=== PATIENT | female | born 1955 | race Caucasian/White ===

== ENCOUNTER → 2016-10-10 | Outpatient (REF) | payer OTHER | LOC: M LAB REF 16:23 | PROVIDERS: ATTEND Internal Medicine Medical Oncology | DX: D48.1 Neoplasm of uncertain behavior of connective and other soft tissue (principal) ==

== ENCOUNTER → 2016-10-12 | Outpatient (CLI) | payer OTHER ==
--- NOTE | 2016-10-12 15:08 | ECGEPIP ---
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
== END ==
LOC: M LAB 08:15
PROVIDERS: ATTEND Nurse Practitioner Family
DX: D21.4 Benign neoplasm of connective and other soft tissue of abdomen (principal)

== ENCOUNTER → 2016-10-14 | Outpatient (CLI) | payer OTHER ==
--- NOTE | 2016-10-14 08:53 | REP ---
Clinical: Given history of gastrointestinal stromal tumor (GIST). Comparison: None available. Findings: The examination is limited by the lack of both oral and intravenous contrast material. There are multiple complex, mixed density mass lesions within the pelvis - the largest of which measure approximately 8.7 x 6.4 x 6.4 cm, and 9.6 x 7.3 x 6.7 cm with smaller similar complex lesions and suspicion for pelvic sidewall adenopathy measuring up to approximately 3.0 x 1.9 cm along the left pelvic sidewall. No pelvic fluid or ascites appreciated. No significant retroperitoneal adenopathy or mesenteric adenopathy is identified. The small and large bowel appears grossly normal with site of small bowel anastomosis in the midline lower abdomen appearing relatively intact and normal. Liver, spleen, pancreas, gallbladder, bilateral adrenal glands and kidneys appear normal for noncontrast evaluation. Mild perinephric stranding appears symmetric and likely chronic without hydronephrosis. Lung bases are clear. Visualized portions of the heart and pericardium are normal. Impression: 1. Multiple complex mixed density lesions within the pelvis measuring up to 9.6 cm diameter with suspicion of associated pelvic adenopathy. No ascites or pelvic fluid. 2. No prior examinations are currently available for comparison. If priors become available, reevaluation and addendum can be made. Signed by Garth Rizzo MD 10/14/2016 08:45 A
--- NOTE | 2016-10-14 10:37 | REP ---
Clinical: Gastrointestinal stromal tumor (GIST). Findings: Bilateral lung pelayo are symmetric, well aerated, and clear. No acute pulmonary parenchymal consolidation, nodule, or mass lesion. No pleural effusion/reaction or pneumothorax. Tracheobronchial tree is patent. No significant adenopathy. Mediastinum demonstrates mild atherosclerotic changes to the thoracic aorta and coronary arteries without cardiomegaly, pericardial effusion, or aortic aneurysm. Surrounding musculoskeletal structures are intact without focal osseous abnormality. Impression: Normal noncontrast chest CT. Signed by Garth Rizzo MD 10/14/2016 10:28 A
== END ==
LOC: M RAD 06:57
PROVIDERS: ATTEND Nurse Practitioner Family
DX: D48.1 Neoplasm of uncertain behavior of connective and other soft tissue (principal)

== ENCOUNTER → 2016-10-28 | Outpatient (REF) | payer OTHER ==
[2016-10-28 13:58] LABS: THYROXINE (T4) 12.7 UG/DL (4.5-12.0)
== END ==
LOC: M LAB REF 12:20
PROVIDERS: ATTEND Internal Medicine Medical Oncology
DX: C49.A0 Gastrointestinal stromal tumor, unspecified site (principal); I15.8 Other secondary hypertension; D51.9 Vitamin B12 deficiency anemia, unspecified

== ENCOUNTER → 2016-11-04 | Outpatient (CLI) | payer OTHER ==
--- NOTE | 2016-11-04 19:26 | ECGEPIP ---
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
== END ==
LOC: M EKG 12:06
PROVIDERS: ATTEND Internal Medicine Medical Oncology
DX: C49.9 Malignant neoplasm of connective and soft tissue, unspecified (principal); C72.9 Malignant neoplasm of central nervous system, unspecified

== ENCOUNTER → 2016-11-11 | Outpatient (REF) | payer OTHER | LOC: M LAB REF 13:01 | PROVIDERS: ATTEND Internal Medicine Medical Oncology | DX: C49.9 Malignant neoplasm of connective and soft tissue, unspecified (principal) ==

== ENCOUNTER → 2016-12-03 | Outpatient (CLI) | payer OTHER ==
--- NOTE | 2016-12-03 22:30 | ECGEPIP ---
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
== END ==
LOC: M EKG 10:00
PROVIDERS: ATTEND Internal Medicine Medical Oncology
DX: Z51.81 Encounter for therapeutic drug level monitoring (principal); Z79.899 Other long term (current) drug therapy; C49.9 Malignant neoplasm of connective and soft tissue, unspecified

== ENCOUNTER → 2016-12-09 | Outpatient (REF) | payer OTHER | LOC: M LAB REF 12:53 | PROVIDERS: ATTEND Internal Medicine Medical Oncology | DX: D21.4 Benign neoplasm of connective and other soft tissue of abdomen (principal) ==

== ENCOUNTER → 2016-12-20 | Outpatient (REF) | payer OTHER | LOC: M LAB REF 16:28 | PROVIDERS: ATTEND Internal Medicine | DX: D51.9 Vitamin B12 deficiency anemia, unspecified (principal) ==

== ENCOUNTER → 2016-12-27 | Outpatient (CLI) | payer OTHER ==
--- NOTE | 2016-12-27 12:52 | REPMRS ---
Patient History The patient states she had a clinical breast exam in December 2016. Patient is postmenopausal. No known family history of cancer. Digital Mammo Screening Bilat: December 27, 2016 - Exam #: [id number] Bilateral CC and MLO view(s) were taken. Technologist: Gema Armendariz, Technologist FINDINGS: There are scattered fibroglandular densities. There has been no change in the appearance of the mammogram from the prior studies. There is a mild amount of residual fibroglandular tissue which is fairly symmetric. There is no interval development of dominant mass, architectural distortion, or clustered microcalcification suggestive of malignancy. ASSESSMENT: BI-RADS/ACR category 1 mammogram. Negative. Recommendation Routine screening mammogram in 1 year (for women over age 40). This mammogram was interpreted with the aid of an FDA-approved computer-aided dectection system. Electronically Signed By: Tobias Barillas MD 12/27/16 [id number]
== END ==
LOC: M RAD 11:04
PROVIDERS: ATTEND Internal Medicine
DX: Z12.31 Encounter for screening mammogram for malignant neoplasm of breast (principal)

== ENCOUNTER → 2016-12-31 | Outpatient (CLI) | payer OTHER ==
[~2016-12-31] MED LIST: GASTROGRAFIN SOLUTION 30ML (Q9963) As Ordered ONE; ISOVUE-370 76% 100ML VIAL (Q9967) As Ordered ONE
--- NOTE | 2016-12-31 11:21 | REP ---
Clinical: Advanced gastrointestinal stromal tumor (GIST) for reevaluation. Technique: Axial contrast enhanced images from the lung bases to the pubic symphysis using oral and 100 ml Isovue 370 intravenous contrast material along with precontrast images of the abdomen and delayed images of the abdomen and pelvis as well as coronal and sagittal re-formations. Comparison: 10/14/2016, 07/16/2016. Findings: The heterogeneously enhancing mass lesions within the lower abdomen and pelvis - many of which demonstrate central low density areas of presumed necrosis appear to have mildly increased in size when compared to prior examinations. Specifically, the large superior-most lesion currently measures 10.3 x 7.8 cm and previously measured 9.5 x 6.[address] dated 10/14/2016 and 8.4 x 6.1 cm on 07/16/2016. The large lesion within the mid/lower pelvis currently measures greater than 11 cm in transverse diameter at the approximate level on prior examinations where measuring 9.5 cm and 9.1 cm on 2016 and 2015 respectively. A lesion along the left pelvic sidewall (image 135) on current examination measures 3.6 x 2.4 cm and previously measured 3.0 x 1.9 cm on 2017 and 2.0 x 1.6 cm on 2015. Further smaller lesions are also identified and essentially similar to recent prior examination dated 10/14/2016. No obvious new lesion is appreciated. Multiple lesions are again identified causing mass effect on in the bladder and somewhat inseparable from the fundus of the uterus. No ascites. No free air. No new adenopathy. Liver, spleen, pancreas, gallbladder, bilateral adrenal glands and kidneys are normal. Mild left hydronephrosis may be secondary to partial extrinsic compression of the distal ureter due to mass lesions. There is no evidence for bowel obstruction or obvious acute inflammatory process. Abdominal aorta and vasculature demonstrates atherosclerotic changes without aneurysm. Musculoskeletal structures demonstrate stable age related changes without focal osseous abnormality. Lung bases are clear. Impression: 1. Although direct comparison is somewhat limited due to previous examination performed without contrast, multiple mass lesions within the abdomen and pelvis are relatively stable in quantity but appear to be mildly increased in size. 2. Mild left hydronephrosis is suggested and possibly related to extrinsic compression of the distal ureter by mass lesions. Signed by Garth Rizzo MD 12/31/2016 11:12 A
--- NOTE | 2016-12-31 11:23 | REP ---
Clinical: Advanced gastrointestinal stromal tumor (GIST) for reevaluation. Technique: Axial contrast enhanced images from the thoracic inlet to the upper abdomen using 100 ml Isovue 370 intravenous contrast material with coronal and sagittal re-formations. Comparison: 10/14/2016, 07/16/2016. Findings: The bilateral lung pelayo are well-aerated, symmetric and clear. No consolidation, nodule or mass lesion is appreciated. No evidence for metastatic disease related to GIST. No pleural effusion/reaction or pneumothorax. Tracheobronchial tree is patent. No adenopathy. Mild atherosclerotic changes of the coronary arteries and thoracic aorta noted without cardiomegaly, pericardial effusion, or thoracic aortic aneurysm/dissection. Visualize esophagus appears normal. Surrounding musculoskeletal structures without focal osseous abnormality Impression: No acute mediastinal or pleuroparenchymal process. No evidence for metastatic disease. Signed by Garth Rizzo MD 12/31/2016 11:14 A
== END ==
LOC: M RAD 08:38
PROVIDERS: ATTEND Internal Medicine Medical Oncology
DX: D21.4 Benign neoplasm of connective and other soft tissue of abdomen (principal)

== ENCOUNTER → 2017-01-07 | Outpatient (REF) | payer OTHER | LOC: M LAB REF 17:52 | PROVIDERS: ATTEND Internal Medicine Medical Oncology | DX: D21.4 Benign neoplasm of connective and other soft tissue of abdomen (principal) ==

== ENCOUNTER → 2017-01-31 | Outpatient (CLI) | payer OTHER ==
--- NOTE | 2017-02-01 08:11 | ECGEPIP ---
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
== END ==
LOC: M EKG 14:56
PROVIDERS: ATTEND Internal Medicine Medical Oncology
DX: D21.4 Benign neoplasm of connective and other soft tissue of abdomen (principal)

== ENCOUNTER → 2017-02-06 | Outpatient (REF) | payer OTHER | LOC: M LAB REF 13:33 | PROVIDERS: ATTEND Internal Medicine Medical Oncology | DX: D21.4 Benign neoplasm of connective and other soft tissue of abdomen (principal) ==

== ENCOUNTER → 2017-03-06 | Outpatient (CLI) | payer OTHER ==
--- NOTE | 2017-03-06 20:55 | ECGEPIP ---
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
== END ==
LOC: M EKG 11:00
PROVIDERS: ATTEND Internal Medicine Medical Oncology
DX: D21.4 Benign neoplasm of connective and other soft tissue of abdomen (principal)

== ENCOUNTER → 2017-03-10 | Outpatient (REF) | payer OTHER | LOC: M LAB REF 12:59 | PROVIDERS: ATTEND Internal Medicine Medical Oncology | DX: E07.9 Disorder of thyroid, unspecified (principal) ==

== ENCOUNTER → 2017-03-31 | Outpatient (CLI) | payer OTHER ==
--- NOTE | 2017-03-31 12:15 | REP ---
Clinical: Gastrointestinal stromal tumor (GIST) for follow-up. Technique: Axial contrast enhanced images from the lung bases to the pubic symphysis using oral and 100 ml Isovue 370 intravenous contrast material with precontrast and delayed images of the abdomen as well as coronal and sagittal re-formations. Comparison: 12/31/2016. Findings: Lung bases are clear. Visualized heart and pericardium normal. Liver, spleen, pancreas, gallbladder, bilateral adrenal glands and kidneys are normal. The enteric system is without obstruction. The colon is completely collapsed with mild mural thickening which may reflect an underlying pancolitis. Innumerable heterogeneous enhancing centrally necrotic lesions primarily noted in the pelvis are essentially unchanged when compared to prior examination although subtle increase in size cannot be excluded. Specifically, a somewhat ovoid mass in the anterior right wero pelvis measures 5.9 cm maximal diameter and previously measured 5.4 cm maximal diameter (image 109). A lesion along the left pelvic sidewall currently measures 4.0 cm maximal AP diameter and previously measured 3.6 cm maximal AP diameter (image 132). The large dominant mass lesions in the mid pelvis beginning at the level of the bifurcation to common iliac arteries extending to the left wero pelvis and splaying the left internal and external iliac arteries measures 11.7 x 8.0 x 10 cm, and the heterogeneous irregular mass in the deep pelvis measures 12.5 cm maximal transverse diameter similar to prior examinations. Smaller lesions throughout the pelvis are also similar to prior examination. No pelvic fluid or ascites. No obvious new adenopathy. No free air. Vasculature demonstrates mild atherosclerotic changes without aneurysm. Surrounding musculoskeletal structures are intact. Impression: 1. Large heterogeneous mass lesions within the lower abdomen and pelvis as described above with the largest lesions essentially unchanged but few other lesions may be slightly increased in size when compared to prior examination. 2. Mild colitis cannot be excluded. Signed by Garth Rizzo MD 03/31/2017 11:10 A
--- NOTE | 2017-03-31 12:15 | REP ---
CT of the chest with IV contrast: Comparisons 12/31/2016. There are no lung masses or nodules. There are no acute infiltrates or effusions. There is no mediastinal, hilar or axillary adenopathy. The thoracic aorta is unremarkable. Cardiac size is normal. There is no pericardial effusion. There are no lytic, blastic or destructive skeletal changes. 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 Impression: Essentially negative CT study of the chest. There is no change from the comparison study. Signed by Tobias Leon MD 03/31/2017 11:10 A
== END ==
LOC: M RAD 08:46
PROVIDERS: ATTEND Internal Medicine Medical Oncology
DX: D21.4 Benign neoplasm of connective and other soft tissue of abdomen (principal); M51.34 Other intervertebral disc degeneration, thoracic region

== ENCOUNTER → 2017-04-07 | Outpatient (CLI) | payer OTHER ==
--- NOTE | 2017-04-07 16:50 | ECGEPIP ---
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
== END ==
LOC: M LAB 11:55
PROVIDERS: ATTEND Internal Medicine Medical Oncology
DX: C49.A0 Gastrointestinal stromal tumor, unspecified site (principal)

== ENCOUNTER → 2017-05-02 | Outpatient (CLI) | payer OTHER ==
--- NOTE | 2017-05-02 17:11 | ECGEPIP ---
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
== END ==
LOC: M EKG 14:31
PROVIDERS: ATTEND Internal Medicine Medical Oncology
DX: C49.A0 Gastrointestinal stromal tumor, unspecified site (principal)

== ENCOUNTER → 2017-05-31 | Outpatient (CLI) | payer OTHER ==
--- NOTE | 2017-05-31 14:31 | ECGEPIP ---
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
== END ==
LOC: M EKG 12:00
PROVIDERS: ATTEND Internal Medicine Medical Oncology
DX: C49.A0 Gastrointestinal stromal tumor, unspecified site (principal)

== ENCOUNTER → 2017-06-28 | Outpatient (CLI) | payer OTHER ==
--- NOTE | 2017-06-29 17:32 | ECGEPIP ---
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
== END ==
LOC: M EKG 12:58
PROVIDERS: ATTEND Internal Medicine Medical Oncology
DX: Z79.899 Other long term (current) drug therapy (principal)

== ENCOUNTER → 2017-07-10 | Outpatient (REF) | payer OTHER | LOC: M LAB REF 17:59 | PROVIDERS: ATTEND Internal Medicine Medical Oncology | DX: C49.A0 Gastrointestinal stromal tumor, unspecified site (principal) ==

== ENCOUNTER → 2017-07-16 | Outpatient (CLI) | payer OTHER ==
--- NOTE | 2017-07-17 16:00 | REP ---
Clinical: Gastrointestinal stromal tumor for follow up. Comparison: 03/31/2017. Technique: Axial contrast enhanced images from the lung bases to the pubic symphysis using oral and 100 ml Isovue 370 intravenous contrast material with precontrast and delayed images of the abdomen as well as coronal and sagittal re-formations. Comparison: 03/31/2017. Findings: The mass lesions within the pelvis have increased in size compared to prior examination. Specifically, the lesion along the left hemipelvis which may represent a pathologic lymph node (image 136) currently measures 5.4 cm maximal diameter and previously measured 4.0 cm; the large lesion in the midline deep pelvis (image 123) measures 13.3 cm maximal diameter and previously measured 12.5 cm; lesion in the right anterior pelvis (image 109) measures 6.9 cm maximal diameter and previously measured 5.9 cm; lesion in the left wreo pelvis (image 104) currently measures 12.7 x 8.6 cm and previously measured 11.7 x 7.9 cm. Smaller scattered lymph nodes/lesions are also identified within the pelvis which are slightly more prominent than prior examination. Liver, spleen, pancreas, gallbladder, bilateral adrenal glands and right kidney appear normal. Left kidney demonstrates mild hydronephrosis which appears to be secondary to ureteral compression by pelvic mass lesions. There is no evidence for bowel obstruction or obvious acute inflammatory process although mild enteritis cannot be excluded. Evaluation of the pelvis demonstrates collapsed bladder with mass effect from the surrounding pelvic mass lesions and stable appearance to the uterus. No pelvic fluid or ascites. Abdominal aorta and vasculature demonstrate atherosclerotic changes without aneurysm or dissection. Surrounding musculoskeletal structures are intact. Lung bases are clear. Impression: 1. Multiple heterogeneously enhancing mass lesions within the pelvis have increased in size from prior examination and smaller scattered similar lesions within the pelvis are also identified. 2. Mild left renal hydronephrosis and hydroureter secondary to a mass effect and compression of the distal ureter. Signed by Garth Rizzo MD 07/17/2017 03:52 P
== END ==
LOC: M RAD 14:48
PROVIDERS: ATTEND Internal Medicine Medical Oncology
DX: R11.10 Vomiting, unspecified (principal); C49.A9 Gastrointestinal stromal tumor of other sites; N13.30 Unspecified hydronephrosis
CPT/HCPCS: 74178; Q9963; Q9967

== ENCOUNTER → 2017-07-23 | Outpatient (REF) | payer OTHER ==
[2017-07-23 19:17] LABS: FREE T4 1.16 NG/DL (0.76-1.46); THYROXINE (T4) 13.4 UG/DL (4.5-12.0)
== END ==
LOC: M LAB REF 17:23
PROVIDERS: ATTEND Internal Medicine Medical Oncology
DX: C49.A0 Gastrointestinal stromal tumor, unspecified site (principal)

== ENCOUNTER → 2017-09-09 | Outpatient (REF) | payer OTHER | LOC: M LAB REF 17:44 | PROVIDERS: ATTEND Internal Medicine Medical Oncology | DX: C77.2 Secondary and unspecified malignant neoplasm of intra-abdominal lymph nodes (principal); C77.5 Secondary and unspecified malignant neoplasm of intrapelvic lymph nodes; D51.9 Vitamin B12 deficiency anemia, unspecified; I15.8 Other secondary hypertension; E03.2 Hypothyroidism due to medicaments and other exogenous substances ==

== ENCOUNTER → 2017-10-21 | Outpatient (REF) | payer OTHER ==
[2017-10-21 19:19] LABS: VITAMIN B12 LEVEL 551 PG/ML (247-911)
[2017-10-21 19:22] LABS: THYROID STIMULATING HORMONE 0.033 uIU/ML (0.358-3.740)
== END ==
LOC: M LAB REF 17:36
DX: R19.00 Intra-abdominal and pelvic swelling, mass and lump, unspecified site (principal)
CPT/HCPCS: 84443

== ENCOUNTER → 2017-10-29 | Outpatient (REF) | payer OTHER ==
[2017-10-29 17:16] LABS: THYROID STIMULATING HORMONE 0.089 uIU/ML (0.358-3.740)
== END ==
LOC: M LAB REF 15:19
DX: C49.A0 Gastrointestinal stromal tumor, unspecified site (principal)
CPT/HCPCS: 84443

== ENCOUNTER → 2017-11-04 | Outpatient (REF) | payer OTHER | LOC: M LAB REF 13:11 | DX: K92.2 Gastrointestinal hemorrhage, unspecified (principal) | CPT/HCPCS: 84443 ==

== ENCOUNTER → 2017-11-20 | Outpatient (REF) | payer OTHER ==
[2017-11-20 18:43] LABS: VITAMIN B12 LEVEL 619 PG/ML (247-911)
== END ==
LOC: M LAB REF 17:09
DX: C49.A0 Gastrointestinal stromal tumor, unspecified site (principal)

== ENCOUNTER → 2017-12-18 | Outpatient (REF) | payer OTHER ==
[2017-12-18 19:21] LABS: VITAMIN B12 LEVEL 520 PG/ML (247-911)
== END ==
LOC: M LAB REF 17:23
DX: C49.A0 Gastrointestinal stromal tumor, unspecified site (principal)

== ENCOUNTER → 2018-06-01 | Outpatient (REF) | payer OTHER ==
[2018-06-02 15:59] LABS: IMMEDIATE SPIN CROSSMATCH 1 2
== END ==
LOC: M LAB REF 18:04
DX: D64.9 Anemia, unspecified (principal)

== ENCOUNTER → 2018-06-01 | Outpatient (CLI) | payer OTHER | LOC: M RAD 15:21 | DX: M79.89 Other specified soft tissue disorders (principal) ==

== ENCOUNTER → 2018-06-02 | Outpatient (CLI) | payer OTHER ==
[2018-06-02] MEDS: ACETAMINOPHEN TAB 650MG DOSE (2X325MG) PO (13:44)
[2018-06-02] MEDS: diphenhydrAMINE 25 MG CAP PO (13:44)
== END ==
LOC: M INFU 12:48
DX: D64.9 Anemia, unspecified (principal); C49.A0 Gastrointestinal stromal tumor, unspecified site; Z96.0 Presence of urogenital implants; Z79.899 Other long term (current) drug therapy
CPT/HCPCS: 36430

== ENCOUNTER 2018-06-11 13:01 | Outpatient (RCR) | payer OTHER | END 2018-07-05 | LOC: M PT 06-22 15:11 | DX: I89.0 Lymphedema, not elsewhere classified (principal); C49.A0 Gastrointestinal stromal tumor, unspecified site | CPT/HCPCS: 97140 ==

== ENCOUNTER 2018-07-06 13:10 | Outpatient (RCR) | payer OTHER | END 2018-08-05 | LOC: M PT 07-08 13:30 | DX: I89.0 Lymphedema, not elsewhere classified (principal) | CPT/HCPCS: 97140 ==

== ENCOUNTER → 2018-07-20 | Outpatient (CLI) | payer OTHER | LOC: M CARPUL 12:06 | DX: C49.A3 Gastrointestinal stromal tumor of small intestine (principal) | CPT/HCPCS: 93306 ==